=== PATIENT | female | born 1965 | race Caucasian/White ===

== ENCOUNTER 2018-10-09 09:14 | Day surgery (SDC) | payer BC ==
[~2018-10-09] VITALS: Ht 167.6 cm; Wt 123.4 kg
[2018-10-09] MEDS ORDERED: LACTATED RINGERS 1,000 ML IV SCH (09:49)
[2018-10-09] MEDS ORDERED: ETAN25KI2 SQ (10:01)
[2018-10-09] MEDS ORDERED: VALA500T4 PO (10:01)
[2018-10-09] MEDS ORDERED: OMEP2.5S2 PO (10:01)
[2018-10-09] MEDS ORDERED: HYDR12.53 PO (10:01)
[2018-10-09] MEDS ORDERED: PIRO20CA2 PO (10:01)
[2018-10-09] MEDS ORDERED: DILT180T7 PO (10:01)
[2018-10-09] MEDS ORDERED: LEVOTHYROID PO (10:01)
[2018-10-09 10:08] VITALS: BP 146/87
[2018-10-09 10:24] LABS: HCG UR SG 1.017 (1.003-1.030)
[2018-10-09 10:31] LABS: ALANINE AMINOTRANSFERASE 57 U/L (12-78); ALBUMIN 3.7 g/dL (3.4-5.0); ANION GAP 7 mmol/L (5-15); CALCIUM 8.6 mg/dL (8.5-10.1); CHLORIDE 109 mmol/L (98-107); CREATININE 0.93 mg/dL (0.55-1.02)
[2018-10-09 10:34] LABS: ALKALINE PHOSPHATASE 109 U/L (45-117); BILIRUBIN,TOTAL 0.6 mg/dL (0.2-1.0); TOTAL PROTEIN 7.5 g/dL (6.4-8.2)
[2018-10-09] MEDS ORDERED: PROPOFOL 10 MG/ML, 20ML ONE (11:20)
[2018-10-09] MEDS ORDERED: FENTANYL PF 100 MCG/2ML ONE (11:20)
== END 2018-10-09 14:25 | disposition home or self-care (01) ==
LOC: OUT 09:14
PROVIDERS: ATTEND Internal Medicine
DX: I10 Essential (primary) hypertension (principal); K21.9 Gastro-esophageal reflux disease without esophagitis; K22.8 Other specified diseases of esophagus; E66.01 Morbid (severe) obesity due to excess calories; E03.9 Hypothyroidism, unspecified; Z86.79 Personal history of other diseases of the circulatory system; Z87.39 Personal history of other diseases of the musculoskeletal system and connective tissue; Z68.41 Body mass index [BMI] 40.0-44.9, adult
CPT/HCPCS: 36415; 43238; 80053; 81025; 88173; 88305; 93005; J2704; J3010; J7120; 88312

== ENCOUNTER → 2019-12-09 | Outpatient (CLI) | payer BC ==
[~2019-12-09] MED LIST: DILT180T7 PO; ETAN25KI2 SQ; HYDR12.517 PO; LEVOTHYROID PO; OMEP2.5S2 PO; PIRO20CA2 PO; VALA500T4 PO
== END | disposition home or self-care (01) ==
LOC: CFH 10:58
PROVIDERS: ATTEND Internal Medicine
DX: R91.1 Solitary pulmonary nodule (principal); R59.0 Localized enlarged lymph nodes; R91.8 Other nonspecific abnormal finding of lung field; M43.9 Deforming dorsopathy, unspecified; H20.9 Unspecified iridocyclitis; M45.7 Ankylosing spondylitis of lumbosacral region; E66.9 Obesity, unspecified; K21.9 Gastro-esophageal reflux disease without esophagitis; Z88.4 Allergy status to anesthetic agent; Z68.42 Body mass index [BMI] 45.0-49.9, adult
CPT/HCPCS: 71250